=== PATIENT | male | born 1995 | race Caucasian/White ===

== ENCOUNTER 2018-04-26 02:51 | Inpatient (IN) | payer OTHER ==
[~2018-04-26] VITALS: Ht 165.1 cm; Wt 68.5 kg
[2018-04-26] VITALS (11 sets, daily range): BP systolic 107–133; BP diastolic 60–77
[2018-04-26] MEDS ORDERED: IV D5/ 0.9% NACL 1,000 ML IV ONE (03:24)
--- NOTE | 2018-04-26 03:25 | NUR ---
Patient bib family for the c/o fever, chills, N/V, abdominal pain and CP x 4-5 hrs. Patient is AAO x 4 and speaking in complete sentences. Pt placed on monitor. Safe environment implemented.
--- NOTE | 2018-04-26 03:29 | NUR ---
Called Rad. for CXR
[2018-04-26] MEDS ORDERED: ONDANSETRON 4 MG/2 ML VIAL IV ONE ×2 (03:30→15:59)
[2018-04-26] MEDS ORDERED: HYDROMORPHONE 1 MG/1 ML DISP.SYRIN IV ONE (03:30)
[2018-04-26] MEDS ORDERED: IOHEXOL 300MG/ML 100 ML INFUS..BTL ONE (03:41)
[2018-04-26] MEDS ORDERED: IV NORMAL SALINE 250 ML BAG ONE (03:41)
[2018-04-26] MEDS ORDERED: NORMAL SALINE FLUSH 10 ML DISP.SYRIN ONE (03:41)
[2018-04-26] MEDS ORDERED: SWABABLE VALVE TRANSFER SET EA MC ONE (03:41)
[2018-04-26] MEDS ORDERED: ONDANSETRON 4 MG/2 ML VIAL ONE ×2 (03:42→11:40)
[2018-04-26] MEDS ORDERED: HYDROMORPHONE 1 MG/1 ML DISP.SYRIN ONE (03:42)
[2018-04-26 03:52] LABS: BASOPHILS % (AUTO) 0.3 % (0.0-2.0); EOSINOPHILS % (AUTO) 0.5 % (0.0-7.0); HEMATOCRIT 44.1 % (36.7-47.1); HEMOGLOBIN 15.2 g/dL (12.5-16.3); LYMPHOCYTES % (AUTO) 12.5 % (20.5-51.5); MEAN CORPUSCULAR HGB CONC 35 g/dL (32.5-36.3); MEAN CORPUSCULAR VOLUME 87.1 fL (73.0-96.2); MONOCYTES # (AUTO) 0.6 K/uL (2.0-10.0); MONOCYTES % (AUTO) 7.9 % (0.0-11.0); NEUTROPHILS # (AUTO) 6.1 K/uL (1.8-8.9); NEUTROPHILS % (AUTO) 78.8 % (38.5-71.5); PLATELET COUNT (AUTO) 268 K/uL (152-348); RED BLOOD CELL COUNT(AUTO) 5.06 MIL/uL (4.06-5.63); WHITE BLOOD COUNT (AUTO) 7.7 K/uL (3.6-10.2)
[2018-04-26 04:00] LABS: BILIRUBIN,DIRECT 0.2 mg/dL (0.0-0.2); BILIRUBIN,TOTAL 1.1 mg/dL (0.2-1.0); CREATININE 0.8 mg/dL (0.6-1.3); TOTAL PROTEIN, SERUM 8.3 g/dL (6.4-8.2)
--- NOTE | 2018-04-26 05:45 | NUR ---
Dr. Early on phone with Dr. Calderon.
--- NOTE | 2018-04-26 05:45 | NUR ---
Patient kept NPO at this time. Patient states his last meal was at 2100 last night (04/25/18).
--- NOTE | 2018-04-26 05:46 | NUR ---
[facility] called for panel call.
--- NOTE | 2018-04-26 05:46 | NUR ---
Per Dr. Early, patient is unstable for transfer.
--- NOTE | 2018-04-26 06:08 | NUR ---
Called [facility] for panel call - awaiting call back from Dr. Knutson
[2018-04-26] MEDS ORDERED: PIPERACILLIN/TAZOBACTAM/D5W 50 ML IV ONE (06:14)
[2018-04-26] MEDS ORDERED: PIPERACILLIN SODIUM/TAZOBACTAM 3.375 G in IV DEXTROSE 5% 50 ML IV ONE (06:15)
--- NOTE | 2018-04-26 06:18 | NUR ---
Dr. Early on phone with Dr. Morales.
--- NOTE | 2018-04-26 06:20 | NUR ---
Spoke with Maira [place] regarding patient condition.
--- NOTE | 2018-04-26 06:25 | NUR ---
Report given to receiving inpatient RN.
[2018-04-26] MEDS ORDERED: ONDANSETRON 4 MG/2 ML VIAL IV PRN (06:30)
[2018-04-26] MEDS ORDERED: ACETAMINOPHEN 325 MG TABLET PO PRN (06:30)
[2018-04-26] MEDS ORDERED: MAGNESIUM HYDROXIDE 30 ML LIQUID UDC PO PRN (06:30)
[2018-04-26] MEDS ORDERED: Z GUARD REMEDY PASTE 57 GM TUBE TOP PRN (06:30)
[2018-04-26] MEDS ORDERED: MORPHINE SULFATE 2 MG/1 ML DISP.SYRIN IV PRN (06:30)
--- NOTE | 2018-04-26 06:58 | NUR ---
SHIFT REPORT GIVEN TO RADHA PEREZ
--- NOTE | 2018-04-26 07:45 | NUR ---
PATIENT ADMITED TO MED/SURG. PATIENT AOX4, COOPERATIVE WITH CARE ON ADMISSION. BELONGINGS LIST COMPLETED. VS STABLE.LT. AC IV HL. PATIENT DENIES PAIN AT THIS TIME. PATIENT DENIES CHEST PAIN OR SOB. ALL NEEDS MET. WILL CONTINUE TO MONITOR.
[2018-04-26] MEDS ORDERED: BUPIVACAINE/EPI PF 0.25% 30 ML VIAL ONE (09:38)
[2018-04-26] MEDS ORDERED: BUPIVACAINE/EPI PF 0.5% 10 ML VIAL ONE (10:02)
--- NOTE | 2018-04-26 10:15 | NUR ---
PATIENT WENT DOWN FOR SURGERY. CONSENT WAS NOT SIGNED AT THIS TIME BECAUSE THE PATIENT REQUESTED TO SPEAK TO THE SURGEN FIRST. PRE OP CHECK LIST COMPLETED.
[2018-04-26] MEDS ORDERED: FENTANYL CITRATE 100 MCG/2 ML AMPUL ONE ×2 (10:17→11:28)
[2018-04-26] MEDS ORDERED: MIDAZOLAM HCL 2 MG/2 ML VIAL ONE (10:18)
[2018-04-26] MEDS ORDERED: ROCURONIUM BROMIDE 50 MG/5 ML VIAL ONE (10:18)
[2018-04-26 10:59] LABS: *BILIRUBIN,URIN NEGATIVE (NEGATIVE); *BLOOD, URINE Trace-intact (NEGATIVE); *CLARITY,URINE CLEAR (CLEAR); *COLOR,URINE YELLOW (YELLOW); *KETONES,URINE 2+ (NEGATIVE); LEUKOCYTE ESTERASE ,URINE NEGATIVE (NEGATIVE); NITRITE, URINE NEGATIVE (NEGATIVE); PH,URINE 6.5 (5.0-8.0); UGLUCOSE 1+ (NEGATIVE)
[2018-04-26 11:06] LABS: BACTERIA,URINE FEW /HPF (NONE SEEN); RBC,URINE 0-3 /HPF (0-3); SQUAMOUS EPITHELIAL CELL,UR FEW /HPF (NONE SEEN); WBC,URINE 0-3 /HPF (0-3)
[2018-04-26] MEDS ORDERED: IV D5W-0.45% NS +20 KCL 1,000 ML IV ONE (11:51)
--- NOTE | 2018-04-26 12:40 | NUR ---
PATIENT CAME BACK FROM SURGERY. UPON ABDOMINAL ASSESMENT HE HAS 3 INSERTION SITES WITH BAND-AIDS OVER THEM.PATIENT IN STABLE CONDITION. VS STABLE. NO SIGNS OF DISTRESS. PATIENT COMPLAINS OF MILD PAIN AT THIS TIME AND REFUSED PAIN MEDICATION. IV FLUIDS STARTED ORDERED. PATIENT PLACED ON REGULAR DIET, AND TOLERATING WATER WELL.
[2018-04-26] MEDS: POTASSIUM CHLORIDE 20 MEQ in IV D5 1/2 NS 1000 ML 1,000 ML IV PRN (13:30)
[2018-04-26] MEDS: CEFAZOLIN 1 G in PREMIXED 1 EACH IV SCH ×2 (14:18→21:22)
--- NOTE | 2018-04-26 15:39 | NUR ---
RAFI TORRE AND INCENTIVE SPIROMETER PROVIDED TO PATIENT ORDERED.
[2018-04-26] MEDS ORDERED: LIDOCAINE-MPF 2% 5 ML VIAL MC ONE (15:59)
[2018-04-26] MEDS ORDERED: SEVOFLURANE 250 ML BOTTLE IH ONE (15:59)
[2018-04-26] MEDS ORDERED: GLYCOPYRROLATE 0.2 MG/ML VIAL MC ONE (15:59)
[2018-04-26] MEDS ORDERED: KETOROLAC TROMETHAMINE 30 MG INJ IM ONE (15:59)
[2018-04-26] MEDS ORDERED: PROPOFOL 200 MG/20 ML BOTTLE IV ONE (15:59)
[2018-04-26] MEDS ORDERED: NEOSTIGMINE METHYLSULFATE 10 MG/10 ML VIAL IV ONE (15:59)
[2018-04-26] MEDS ORDERED: DEXAMETHASONE SOD PHOSPHATE 4 MG INJ IV ONE (15:59)
[2018-04-26] MEDS ORDERED: IV LACTATED RINGERS SOLUTION 1,000 ML BAG IV ONE (15:59)
[2018-04-26] MEDS: HYDROCODONE/APAP 5-325MG TABLET PO PRN ×2 (17:24→21:36)
--- NOTE | 2018-04-26 19:46 | NUR ---
PATIENT IN BED RESTING. VITAL SIGNS STABLE THROUGHOUT THE SHIFT. PAIN MEDICATIONS GIVEN ORDERED. NAUSEA MEDICATIONS GIVEN ORDERED. ALL NEEDS MET. SAFETY PRECAUTIONS IN PLACE.
--- NOTE | 2018-04-26 20:00 | NUR ---
RECEIVED PATIENT AWAKE IN BED WITH MOTHER AT BEDSIDE. PATIENT IS A/O X4. DENIES PAIN AT THIS TIME. NO RESP. DISTRESS NOTED. VSS. IVF INFUSING WELL TO LEFT AC #20 GAUGE. 3 INCISION SITES NOTED TO ABDOMEN, RAMSES NOTED WITH BAND-AIDE IN PLACE. PATIENT ENCOURAGED TO GET OOB AND AMBULATE. IS AT BEDSIDE. TEACHING GIVEN. PATIENT VERBALIZED UNDERSTANDING. CALL LIGHT IN REACH. ALL NEEDS ATTENDED. WILL CONTINUE TO MONITOR AND ASSESS.
--- NOTE | 2018-04-26 21:40 | NUR ---
PATIENT C/O PAIN. GIVEN NORCO 1 TAB PO PRN FOR PAIN. WILL CONTINUE TO MONITOR AND ASSESS.
--- NOTE | 2018-04-26 22:45 | NUR ---
PATIENT OOB, AMBULATING IN HALLWAY. STATED NORCO IS INEFFECTIVE. C/O PAIN IN ABDOMEN.
--- NOTE | 2018-04-26 23:05 | NUR ---
PATIENT GIVEN MORPHINE 2MG IV PRN PER RN. VSS. WILL CONTINUE TO MONITOR AND ASSESS.
[2018-04-27] MEDS: ZOLPIDEM 5 MG TABLET PO PRN ×2 (01:31→02:22)
[2018-04-27 03:26] VITALS: BP 104/60
[2018-04-27] MEDS: POTASSIUM CHLORIDE 20 MEQ in IV D5 1/2 NS 1000 ML 1,000 ML IV PRN (04:03)
[2018-04-27 06:11] LABS: BASOPHILS % (AUTO) 0.2 % (0.0-2.0); EOSINOPHILS % (AUTO) 0.2 % (0.0-7.0); HEMATOCRIT 39.5 % (36.7-47.1); HEMOGLOBIN 13.6 g/dL (12.5-16.3); LYMPHOCYTES # (AUTO) 1.3 K/uL (20.0-40.0); LYMPHOCYTES % (AUTO) 17.7 % (20.5-51.5); MEAN CORPUSCULAR HGB CONC 35 g/dL (32.5-36.3); MEAN CORPUSCULAR VOLUME 87.1 fL (73.0-96.2); MONOCYTES # (AUTO) 0.7 K/uL (2.0-10.0); MONOCYTES % (AUTO) 9.3 % (0.0-11.0); NEUTROPHILS # (AUTO) 5.4 K/uL (1.8-8.9); NEUTROPHILS % (AUTO) 72.6 % (38.5-71.5); PLATELET COUNT (AUTO) 266 K/uL (152-348); RED BLOOD CELL COUNT(AUTO) 4.53 MIL/uL (4.06-5.63); WHITE BLOOD COUNT (AUTO) 7.4 K/uL (3.6-10.2)
[2018-04-27] MEDS: CEFAZOLIN 1 G in PREMIXED 1 EACH IV SCH ×2 (06:17→13:35)
[2018-04-27 06:26] LABS: CREATININE 0.8 mg/dL (0.6-1.3); MAGNESIUM 1.9 mg/dL (1.8-2.4); PHOSPHOROUS 3.6 mg/dL (2.5-4.9); POTASSIUM 4.1 mmol/L (3.5-5.1)
--- NOTE | 2018-04-27 06:31 | NUR ---
PATIENT ASLEEP IN BED. MOTHER AT BEDSIDE. DENIES PAIN AT THIS TIME. IVF INFUSING WELL. VSS. CALL LIGHT IN REACH. ALL NEEDS ATTENDED. WILL CONTINUE TO MONITOR AND ASSESS.
[2018-04-27] MEDS: HYDROCODONE/APAP 5-325MG TABLET PO PRN ×2 (09:08→13:36)
[2018-04-27 11:14] VITALS: BP 123/74
[2018-04-27] MEDS ORDERED: CEPH-570 PO (14:34)
[2018-04-27] MEDS ORDERED: HYDR-3326 PO (14:34)
--- NOTE | 2018-04-27 16:00 | NUR ---
Patient discharge complete, wristband removed and IV access removed. 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 Patient prescription given and faxed to preferred pharmacy. Patient education about post op surgical site given at bedside, 's contact/office information given for follow up of surgical wound. Patient is aware about returning to for staple removal in a week. Patient stable at time of discharge, ambulatory without complications.
== END 2018-04-27 16:00 | disposition home or self-care (01) | DRG 234 ==
LOC: ER 02:51 → MEDSURG3 07:01
PROVIDERS: ADMIT Family Medicine; ATTEND Internal Medicine
PROC: 0DTJ4ZZ Resection of Appendix, Percutaneous Endoscopic Approach (ICD-10-PCS; principal; 2018-04-26)
DX: K35.890 Other acute appendicitis without perforation or gangrene (principal); K76.0 Fatty (change of) liver, not elsewhere classified; E78.5 Hyperlipidemia, unspecified; J02.8 Acute pharyngitis due to other specified organisms
CPT/HCPCS: 36415; 70030-TC; 71045; 83690; 83735; 84100; 85025; 85730; 86403; 86850; 86900; 86901; 87070; 87400; 93005; A4663; G0378; J0690; J1100; J1170; J1885; J2250; J2270; J2405; J2543; J2710; J3010; J3480; J3490; J7042; J7050; J7120; Q9967

== ENCOUNTER 2020-08-06 01:40 | Emergency (ER) | payer OTHER ==
[~2020-08-06] VITALS: Ht 167.6 cm; Wt 63.5 kg
[~2020-08-06 01:40] MED LIST: CEPH-570 PO; HYDR-3326 PO
[2020-08-06] MEDS ORDERED: TETRACAINE HCL 0.5% OPHT DROP 2 ML BOTTLE OP ONE (02:00)
[2020-08-06] MEDS ORDERED: FLUORESCEIN SODIUM 1 MG STRIP OP ONE (02:00)
--- NOTE | 2020-08-06 02:00 | NUR ---
MD Garcia in room to do MSE.
[2020-08-06] MEDS ORDERED: TETRACAINE HCL 0.5% OPHT DROP 2 ML BOTTLE ONE (02:01)
[2020-08-06] MEDS ORDERED: FLUORESCEIN SODIUM 1 MG STRIP ONE ×3 (02:01→02:49)
[2020-08-06] MEDS ORDERED: OXYCODONE/APAP 5-325 MG TABLET PO ONE (02:15)
[2020-08-06] MEDS ORDERED: KETOROLAC TROMETHAMINE 60 MG INJ IM ONE (02:15)
[2020-08-06] MEDS ORDERED: SODIUM/POT/SOD CHL OPHT WASH 120 ML BOTTLE ONE (02:51)
--- NOTE | 2020-08-06 02:56 | NUR ---
[place]-[facility] nicholson returned directly to Pyxis. Not to external bin.
[2020-08-06] MEDS ORDERED: ACET1TAB23 PO (02:58)
[2020-08-06] MEDS ORDERED: TOBR5DRO46 EACHEYE (03:06)
[2020-08-06] MEDS ORDERED: TOBR5DRO EACHEYE (03:09)
--- NOTE | 2020-08-06 03:10 | NUR ---
Patient is resting on bed, no acute distress noted. Looking at environment.
[2020-08-06 03:15] VITALS: BP 110/72
--- NOTE | 2020-08-06 03:15 | NUR ---
Patient discharged to home in stable condition. Written and verbal after care instructions given. Patient verbalizes understanding of instructions. Stressed follow up or return to ER for worsening s/s. Patient ambulates with steady gait, V/S stable, Rx electronically sent to preferred pharmacy, instructed to not drive, and left with all personal belongings.
== END 2020-08-06 03:15 | disposition home or self-care (01) ==
LOC: ER 01:41
DX: H16.133 Photokeratitis, bilateral (principal); W89.8XXA Exposure to other man-made visible and ultraviolet light, initial encounter; Y93.H3 Activity, building and construction; Y92.89 Other specified places as the place of occurrence of the external cause
CPT/HCPCS: 96372; 99283; J1885; A4663

== ENCOUNTER 2021-12-21 20:24 | Emergency (ER) | payer OTHER ==
[~2021-12-21] VITALS: Ht 165.1 cm; Wt 63.5 kg
[~2021-12-21 20:24] MED LIST changes: +ACET1TAB23 PO; +TOBR5DRO EACHEYE
--- NOTE | 2021-12-21 20:44 | NUR ---
Dr Barrow at bedside, MSE in progress
[2021-12-21] MEDS ORDERED: FLUORESCEIN SODIUM 1 MG STRIP ONE (21:24)
[2021-12-21] MEDS ORDERED: TETRACAINE HCL 0.5% OPHT DROP 2 ML BOTTLE ONE (21:24)
[2021-12-21] MEDS ORDERED: FLUORESCEIN SODIUM 1 MG STRIP OP ONE (21:30)
[2021-12-21] MEDS ORDERED: TETRACAINE HCL 0.5% OPHT DROP 2 ML BOTTLE OP ONE (21:30)
[2021-12-21] MEDS ORDERED: OXYC-128 PO (22:42)
[2021-12-21] MEDS ORDERED: CIPR5DRO RIGHTEYE (22:42)
--- NOTE | 2021-12-21 22:49 | NUR ---
Patient discharged to home in stable condition. Written and verbal after care instructions given. Patient verbalizes understanding of instructions. Stressed follow up or return to ER for worsening s/s. Patient is a/ox4, NAD noted. Patient is able to walk with steady gait
[2021-12-21 22:50] VITALS: BP 125/78
== END 2021-12-21 22:50 | disposition home or self-care (01) ==
LOC: ER 20:28
DX: T15.01XA Foreign body in cornea, right eye, initial encounter (principal); X58.XXXA Exposure to other specified factors, initial encounter; Y92.69 Other specified industrial and construction area as the place of occurrence of the external cause; Y99.0 Civilian activity done for income or pay; F17.210 Nicotine dependence, cigarettes, uncomplicated
CPT/HCPCS: A4663; J7040

== ENCOUNTER 2023-10-13 11:56 | Emergency (ER) | payer OTHER ==
[~2023-10-13] VITALS: Ht 152.4 cm; Wt 63.5 kg
[~2023-10-13 11:56] MED LIST changes: +CIPR5DRO RIGHTEYE; +OXYC-128 PO
[2023-10-13 12:06] VITALS: O2SAT 99
== END 2023-10-13 13:58 | disposition home or self-care (01) ==
LOC: ER 11:57
DX: S93.115A Dislocation of interphalangeal joint of left lesser toe(s), initial encounter (principal); Z79.891 Long term (current) use of opiate analgesic; Z79.899 Other long term (current) drug therapy; X58.XXXA Exposure to other specified factors, initial encounter; Y93.89 Activity, other specified; Y92.89 Other specified places as the place of occurrence of the external cause; Y99.8 Other external cause status
CPT/HCPCS: 73660; A4606; A4663